=== PATIENT | female | born 1980 | race Caucasian/White ===

== ENCOUNTER → 2022-04-18 | Outpatient (CLI) | payer BC, SELFPAY ==
[2022-04-18 09:58] LABS: Absolute Lymphocyte Count 1.99 X10^3/uL (0.83-4.51); Absolute Neutrophil Count 2.8 X10^3/uL (2.0-7.7); Basophil# 0.02 X10^3/uL; Basophil% 0.4 % (0-1); Eosinophil# 0.04 X10^3/uL; Eosinophils% 0.8 % (0-5); Hematocrit 46.8 % (37-47); Hemoglobin 15.1 g/dL (12.0-15.0); Lymphocyte # 1.99 X10^3/ul (0.83-4.51); Lymphocyte % 37.9 % (19-41); Mean Corp Hgb Conc 32.3 g/dL (32-36); Mean Corpuscular Volume 92.9 fL (81-99); Mean Platelet Vol. 9.1 fl (6.2-12.0); Monocyte# 0.35 X10^3/uL; Monocyte% 6.7 % (0-10); NRBC Flagged by Analyzer 0 % (0-5); Neutrophil # 2.84 X10^3/uL (2.7-7.7); Platelet Count 249 K/mm3 (150-450); RBC Distribution Width CV 13.2 % (11.6-14.6); RBC Distribution Width SD 44.4 fl (35.1-43.9); Red Blood Count 5.04 M/mm3 (4.2-5.4); White Blood Count 5.3 K/mm3 (4.4-11.0)
[2022-04-18 10:25] LABS: ALB/GLOB Ratio 0.9 RATIO (0.9-2.4); AST(SGOT) 16 U/L (15-37); Alanine Aminotransfer ALT/SGPT 20 U/L (13-56); Albumin, Serum 3.6 g/dL (3.2-5.0); Alkaline Phosphatase 44 U/L (45-117); Anion Gap 5 (5-15); BUN 15 mg/dL (7-18); BUN/Creat Ratio 16.9 RATIO (10-20); Chloride 109 mmol/L (98-107); Cholesterol 191 mg/dL (200); Creatinine, Serum 0.89 mg/dL (0.55-1.02); EST Glomerular Filtration Rate 74 mL/min (>60); Est Glom Filt Rate - Afr Amer 89 mL/min (>60); Globulin 4.2 g/dL (2.2-4.2); Glucose 93 mg/dL (74-106); High Density Lipoprotein 59 mg/dL; Potassium 4.1 mmol/L (3.5-5.1); Protein, Total 7.8 g/dL (6.4-8.2); Sodium Level 141 mmol/L (136-145); T4 Free Direct 1.03 ng/dL (0.76-1.46); Thyroid Stim Hormone (TSH) 2.45 uIU/mL (0.358-3.74); Triglycerides 70 mg/dL; Very Low Density Lipoprotein 14 mg/dL (5-40)
== END | disposition home or self-care (01) ==
LOC: MTLAB 08:13
PROVIDERS: PCP Family Medicine; Referring Provider Family Medicine; Visit Provider Family Medicine
DX: Z13.0 Encounter for screening for diseases of the blood and blood-forming organs and certain disorders involving the immune mechanism (principal); E03.9 Hypothyroidism, unspecified; Z13.1 Encounter for screening for diabetes mellitus; Z13.220 Encounter for screening for lipoid disorders
CPT/HCPCS: 36415; 80053; 80061; 83036; 84439; 84443; 85025

== ENCOUNTER → 2023-09-14 | Outpatient (CLI) | payer BC, SELFPAY ==
[2023-09-14 10:18] LABS: Thyroid Stim Hormone (TSH) 3.18 uIU/mL (0.358-3.74)
== END | disposition home or self-care (01) ==
LOC: MTLAB 08:41
PROVIDERS: PCP Family Medicine; Referring Provider Family Medicine; Visit Provider Family Medicine
DX: E03.9 Hypothyroidism, unspecified (principal)
CPT/HCPCS: 36415; 84436; 84443

== ENCOUNTER → 2023-12-18 | Outpatient (CLI) | payer BC, SELFPAY ==
--- NOTE | 2023-12-18 14:13 | BI_ITS ---
MAMMOGRAPHY - BILATERAL SCREENING REASON FOR EXAM: Female, 43 years old. Routine annual screening examination. PERTINENT HISTORY: Mother with breast cancer. History of excisional breast biopsy of the left breast for resection of a fibroadenoma. TECHNIQUE: Digital bilateral breast hattie (3D mammographic acquisition) in the CC and MLO projections. 2-D mediolateral oblique (MLO) and craniocaudad (CC) views of both breasts were obtained. CAD: Full Field Digital Mammography with Computer Added Detection was performed. COMPARISON: Comparison is made with prior outside examination of October 04, 2020. FINDINGS: Breast Composition: The breasts are extremely dense, which lowers the sensitivity of mammography. There are no dominant masses or suspicious calcifications. Stable small bilateral axillary lymph nodes. No other significant abnormalities are identified. There has been no significant change since the prior study. BI/SCRN MAMM (CAD)W/HATTIE BILAT IMPRESSION: Stable bilateral screening mammogram. Yearly follow-up mammogram recommended. (A) ASSESSMENT CATEGORY: BIRADS Category 2: Benign. A letter regarding these results will be sent to the patient by the facility within 30 days. Approximately 10% of breast cancers are not detected by mammography. A normal mammogram should not delay biopsy of a clinically suspicious abnormality. [id number] Electronically Signed: Kam Rose MD at 8:39 EST ,
--- OUTSIDE RECORDS SUMMARY | 2023-12-18 14:59 | XMS RPT_ITS | CCD ---
Author Organization [facility] Care Team Providers Care Ambulance Dispatcher Name Role Phone Pcp, No Unavailable Unavailable Pcp, No Unavailable Unavailable Pcp, No Unavailable Unavailable Dawson VALENTINE, Urbano Estrada Primary Care Provider Pcp MANAGER HOME, No Unavailable Unavailable CHELSEY HUTCHINSON Attending Unavailable Medications Current Medications Medication Drug Class(es) Dates Sig (Normalized) Sig (Original) levothyroxine sodium 0.088 mg oral tablet (1 source) l-Thyroxine Start: 01-31-2020 take 1 tablet by mouth once daily for thyroid dysfunction levothyroxine (LEVOXYL) 88 mcg tablet Indications: Acquired hypothyroidism Take 1 tablet by mouth once daily. Take on empty stomach. For Thyroid 90 tablet 1 01/31/2020 Active Problems Problem Classification Problem Date Documented Date Episodic/Chronic Immunizations and screening for infectious disease (1 source) Encounter for screening for human papillomavirus (HPV); Translations: [Encounter for screening for human papillomavirus (HPV)] Onset: 11-11-2023 Episodic Other screening for suspected conditions (not mental disorders or infectious disease) (6 sources) Patient encounter status; Translations: [Encounter for screening mammogram for malignant neoplasm of breast] Onset: 11-11-2023 Episodic Thyroid disorders (2 sources) Acquired hypothyroidism; Translations: [Hypothyroidism, unspecified] Onset: 11-24-2016 11-24-2016 Chronic Results Test Name Value Interpretation Reference Range Facility CNOVon 11-11-2023 CNOV Office Visit (OBGYWM ) THOMAS PRICE ([id number]) 1980 F Date Time Provider Department 11/11/23 9:40 AM CHELSEY HUTCHINSON OBGYWM During your visit today, we recorded the following information about you: Blood pressure Weight Height Last Period 116/62 64.9 kg 1.6 m 10/29/23 Chelsey Hutchinson MD 11/11/2023 10:15 AM Signed Thomas is a 43 year old who presents for an annual gynecologic exam without complaints. Menses: cycles every 28-30 days and 4 days of flow. 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 History Comments: Sexual Activity: Yes; Male Contraception: No contraception data on record PAST MEDICAL HISTORY Diagnosis Date Breast tumor 02/23/1998 benign Hypothyroid Miscarriage Unicornate uterus PAST SURGICAL HISTORY Procedure Laterality Date OTHER 1998 jay, breast tumor FAMILY HISTORY Problem Relation Age of Onset Thyroid Mother Breast Cancer Mother 66 other (Other) Father spleen removed d/t thrombocytopenia None Brother SOCIAL HISTORY Social History Tobacco Use Smoking status: Never Smokeless tobacco: Never Vaping Use Vaping status: Never Used Substance Use Topics Alcohol use: Yes Alcohol/week: 2.0 standard drinks of alcohol Types: 2 Glasses of Wine (5oz) per week Comment: glass of wine weekends, cocktail monthly Drug use: No REVIEW OF SYSTEMS Abdomen: No abdominal pain, nausea, vomiting, diarrhea, or constipation. No bloating, early satiety, indigestion, or increased flatulence. Bladder: No dysuria, gross hematuria, urinary frequency, urinary urgency, or incontinence. Breast: No breast lumps, nipple d/c, overlying skin changes, redness or skin retraction. Allergies and current medication updated:Yes SENSITIVE EXAM: The sensitive examination was discussed with the Patient or Patient's Authorized Prefabricator. As applicable, any other physician, advance practice provider, medical student, or other health professional student that will be observing or involved in the sensitive examination for educational or training purposes was discussed with the Patient or Authorized Prefabricator. The Patient or Authorized Prefabricator has agreed to proceed with the sensitive examination. (Sensitive examination includes inspection and/or palpation of the breasts, pelvis, prostate and anorectal regions). EXAM: BP 116/62 Ht 5' 3 (1.60m) Wt 143 lb (64.9kg) LMP 10/29/2023 BMI 25.34 kg/(m2). GENERAL: pleasant, female in no apparent distress HEENT: Normocephalic, atraumatic, mucus membranes moist, and no lesions NECK: Supple, full range of motion, no adenopathy, and thyroid normal DERMATOLOGY: Normal, without lesions, non-icteric, and non-hirsute BREAST: soft, non-tender, symmetric, no dominant mass, normal nipple-areolar complex, no lymphadenopathy, and no nipple discharge CHEST: Normal inspiratory effort ABDOMEN: soft, non-tender, and no masses PELVIC: external genitalia normal, normal Bartholin's glands, urethra, [place]'s glands, no vulvar lesions, no cervical lesions, good vaginal support, physiologic discharge present, normal appearing perineal body and perianal region BIMANUAL: uterus normal size, shape and consistency, no adnexal masses, and non-tender RECTOVAGINAL: deferred. NEURO: alert and oriented x3,exam grossly non-focal EXTREMITIES: normal ASSESSMENT/PLAN: 1) Health maintenance: Pap/HPV up to date. Mammogram up to date . HPV vaccine: discussed, not interested 2) Contraception: none. Contraceptive options reviewed and information provided. 3) STD screening: Declined STD check. 4) Follow up one year or sooner as needed Chelsey Hutchinson MD Allergies As of Date: 11/11/2023 (No Known Allergies) Date Reviewed: 11/11/2023 Reviewed by: Chelsey Hutchinson MD - Fully Assessed Reason for Visit: Yearly Exam [187] Primary Visit Diagnosis:Encounter for gynecological examination (general) (routine) without abnormal findings [Z01.419] Other Visit Diagnoses:Screening for cervical cancer [Z12.4] Encounter for screening for human papillomavirus (HPV) [Z11.51] Encounter for screening mammogram for breast cancer [Z12.31] Order(s):PAP TEST [[id number]] Order #: [id number] JOSELIN SCREENING W HATTIE [[id number]] Order #: [id number] FUTURE JOSELIN SCREENING W HATTIE [[id number]] Order #: [id number] FUTURE Prescriptions as of 11/11/2023 - levothyroxine (LEVOXYL) 88 mcg tablet Take 1 tablet by mouth once daily. Take on empty stomach. For Thyroid Problem List As Of (more content not included)... Normal [facility] HIGH RISK HUMAN PAPILLOMA COLLEEN (HPV), PCR FOR DETECTION AND GENOTYPINGon 11-11-2023 HPV 16 Ag Ql (Unsp spec) Not detected Normal Not detected [facility] Comment on above: Order Comment: Speci men Type: FLUID SPECIMEN Ordering Facility: [facility] Address: [address] [place] [address] Performed By: #### L [id number], HPVHRT #### [facility] CLIA [id number] [address] [place] [address] [place] HPV 18 Ag Ql (Unsp spec) Not detected Normal Not detected [facility] Comment on above: Order Comment: Speci men Type: FLUID SPECIMEN Ordering Facility: [facility] Address: [address] [place] [address] Performed By: #### L [id number], HPVHRT #### [facility] CLIA [id number] [address] [place] [address] [place] HPV 31+33+35+39+45+51+52 +56+58+59+66+68 DNA PAT+probe Ql (Cvx) Not detected Normal Not detected [facility] Comment on above: Order Comment: Speci men Type: FLUID SPECIMEN Ordering Facility: [facility] Address: [address] [place] [address] Result Comment: High Risk HPV Other Type includes HPV types 31, 33, 35, 39, 45, 51, 52, 56, 58, 59, 66 and 68. Performed By: #### L [id number], HPVHRT #### [facility] CLIA [id number] [address] [place] [address] [place] PAP TESTon 11-11-2023 ADEQUACY Satisfactory for interpretation. Normal [facility] Comment on above: Order Comment: Speci men Type: FLUID SPECIMEN Ordering Facility: [facility] Address: [address] [place] [address] Performed By: #### L [id number], HPVHRT #### [facility] CLIA [id number] [address] [place] [address] [place] CASE REPORT Normal [facility] Comment on above: Order Comment: Speci men Type: FLUID SPECIMEN Ordering Facility: [facility] Address: [address] [place] [address] Result Comment: Gyne cologic Cytology Report Case: [id number] Authorizing Provider: Chelsey Hutchinson MD Collected: 11/11/2023 10:22 AM Ordering Location: OB/Gynecology Received: 11/11/2023 11:46 AM First Screen: Alice Sweet Tech Pathologist: Cherry Miller MD Specimen: Pap Test, ThinPrep, Cervix Performed By: #### L [id number], HPVHRT #### [facility] CLIA [id number] [address] [place] [address] [place] CLINICAL HISTORY, CYTOLOGY, INTERNATIONAL ACCOUNT MANAGER Routine Exam Normal [facility] Comment on above: Order Comment: Speci men Type: FLUID SPECIMEN Ordering Facility: [facility] Address: [address] [place] [address] Performed By: #### L [id number], HPVHRT #### [facility] CLIA [id number] [address] [place] [address] [place] CYTOLOGY PAP OTHER INT Predominance of coccobacilli consistent with shift in vaginal arash Normal [facility] Comment on above: Order Comment: Speci men Type: FLUID SPECIMEN Ordering Facility: [facility] Address: [address] [place] [address] Performed By: #### L [id number], HPVHRT #### [facility] CLIA [id number] [address] [place] [address] [place] FINAL PERFORMING LAB Normal [facility] Comment on above: Order Comment: Speci men Type: FLUID SPECIMEN Ordering Facility: [facility] Address: [address] [place] [address] Result Comment: Tech nical component, addictions counselor assistant screening performed at [facility], [address] [place] [address] CLIA# [id number] Diagnostic interpretation performed at [facility], [facility] [place] [id number] CLIA# [id number] Nurse Licensed Practical: German Alejandro M.D. Performed By: #### L [id number], HPVHRT #### [facility] CLIA [id number] [address] [place] [address] [place] HPV REFLEX Yes HPV Normal [facility] Comment on above: Order Comment: Speci men Type: FLUID SPECIMEN Ordering Facility: [facility] Address: [address] [place] [address] Performed By: #### L [id number], HPVHRT #### [facility] CLIA [id number] [address] [place] [address] [place] INTERPRETATION, CYTOLOGY, INTERNATIONAL ACCOUNT MANAGER Abnormal [facility] Comment on above: Order Comment: Speci men Type: FLUID SPECIMEN Ordering Facility: [facility] Address: [address] [place] [address] Result Comment: Atyp ical squamous cells of undetermined significance (ASC-US). Performed By: #### L [id number], HPVHRT #### [facility] CLIA [id number] [address] [place] [address] [place] LMP 10/29/2023 Normal [facility] Comment on above: Order Comment: Speci men Type: FLUID SPECIMEN Ordering Facility: [facility] Address: [address] [place] [address] Performed By: #### L [id number], HPVHRT #### [facility] CLIA [id number] [address] [place] [address] [place] PAP DISCLAIMER COMMENT The Pap Smear is a screening test for cervical cancer. False negative results occur with all screening tests, emphasizing the need for rescreening at recommended intervals, and clinical correlation. Normal [facility] Comment on above: Order Comment: Speci men Type: FLUID SPECIMEN Ordering Facility: [facility] Address: [address] [place] [address] Performed By: #### L [id number], HPVHRT #### [facility] CLIA [id number] [address] [place] [address] [place] PAP GENERAL CATEGORIZATION Epithelial Cell Abnormality Normal [facility] Comment on above: Order Comment: Speci men Type: FLUID SPECIMEN Ordering Facility: [facility] Address: [address] [place] [address] Performed By: #### L [id number], HPVHRT #### [facility] CLIA [id number] [address] [place] [address] [place] PAP WIRE HARNESS ASSEMBLER COMMENT This specimen has be en analyzed by the ThinPrep Imaging System, an automated imaging and review system, which assists the laboratory in evaluating cells on ThinPrep Pap tests. Following automated imaging, selected vargas from every slide are reviewed by a addictions counselor assistant. Normal [facility] Comment on above: Order Comment: Speci men Type: FLUID SPECIMEN Ordering Facility: [facility] Address: [address] [place] [address] Performed By: #### L [id number], HPVHRT #### [facility] CLIA [id number] [address] [place] [address] [place] CNNURSEon 06-18-2020 CNNURSE Nurse Visit (NASIMA) THOMAS PRICE ([id number]) 1980 F Date Time Provider Department 06/18/20 10:25 AM COVID VACCINE BHAKTA COVAMD During your visit today, we recorded the following information about you: Referring Provider: EDEN SWEENEY JR [[id number]] Allergies As of Date: 06/18/2020 (No Known Allergies) Date Reviewed: 04/08/2019 Reviewed by: Estephania Bone Ma - Fully Assessed Order(s):[employer] English SARS-COV-2 VACCINE 2D DOSE APPT [[id number]] Order #: [id number] [employer] COVID-19 VACCINE [[id number]] Order #: [id number] Prescriptions as of 06/18/2020 Sig: LEVOTHYROXINE 88 MCG TABLET Take 1 tablet by mouth once d* Problem List As Of Date 06/18/2020 Noted Resolved Acquired hypothyroidism [E03.9] 11/24/2016 Encounter Status:Closed by CLOSURE EPIC, ADMINISTRATIVE on 06/19/20 [facility] Vital Signs Date Time Vital Sign Value Performing Clinician Faci lity 11-11-2023 09:45-0400 Body height 160 cm Chelsey Hutchinson MD Work Phone: [facility] 11-11-2023 09:45-0400 Body mass index (BMI) [Ratio] 25.33 kg/m2 Chelsey Hutchinson MD Work Phone: [facility] 11-11-2023 09:45-0400 Body weight 64.86 kg Chelsey Hutchinson MD Work Phone: [facility] 11-11-2023 09:45-0400 Diastolic blood pressure 62 mm[Hg] Chelsey Hutchinson MD Work Phone: [facility] 11-11-2023 09:45-0400 Systolic blood pressure 116 mm[Hg] Chelsey Hutchinson MD Work Phone: [facility] Encounters Encounter Date Encounter Type Care Provider Facility Start: 11-11-2023 End: 11-11-2023 Patient encounter procedure Chelsey Hutchinson MD Work Phone: OB/Gynecology Comment on above: Encounter for gyneco logical examination (general) (routine) without abnormal findings (Primary Dx); Screening for cervical cancer; Encounter for screening for human papillomavirus (HPV); Encounter for screening mammogram for breast cancer Start: 11-11-2023 End: 11-11-2023 Patient encounter status Chesley Hutchinson MD Work Phone: [facility] Start: 11-11-2023 End: 11-11-2023 ambulatory CHELSEY HUTCHINSON Facility:[facility] Start: 11-11-2023 Encounter for gynecological examination (general) (routine) without abnormal findings CHELSEY HUTCHINSON [facility] Start: 11-20-2021 ambulatory Urbano duncan MD Work Phone: Internal Medicine Main [place] Procedures Date Procedure Procedure Detail Performing Clinician Start: 10-04-2020 Mammography Urbano denny MD Work Phone: Plan of Treatment Date Care Activity Detail Author Start: 11-10-2024 End: 12-10-2024 DBT Breast - bilateral screening JOSELIN SCREENING W HATTIE Radiology Routine Encounter for gynecological examination (general) (routine) without abnormal findings Encounter for screening mammogram for breast cancer Expected: 11/10/2024, Expires: 12/10/2024 [facility] Comment on above: Expected: 11/10/2024 , Expires: 12/10/2024 Start: 10-25-2023 Covid-19 Vaccine ( season) Covid-19 Vaccine () [facility] Start: 10-25-2023 Influenza vaccination Influenza Vacc ine (#1) [facility] Start: 10-24-2021 Influenza vaccination INFLUENZA (#1) [facility] Start: 10-04-2021 Mammography MAMMOGRAM [facility] Start: 10-04-2021 Screening for malign ant neoplasm of breast Mammogram Screening [facility] Start: 02-23-2021 DEPRESSION ASSESSMENT DEPRESSION ASS ESSMENT [facility] Start: 01-30-2021 ANNUAL PCP TEAM SEE WHEELER MOSES DISEASE VISIT ANNUAL PCP TEAM CHRONIC DISEASE VISIT [facility] Start: 10-24-2020 HPV TESTING HPV TESTING [facility] Start: 10-24-2020 PAP TESTING PAP TESTING [facility] Start: 10-24-2020 Screening for malign ant neoplasm of cervix Cervical Cancer Screening [facility] Start: 08-13-2020 COVID-19 VACCINE (3 - Booster for Pfizer series) COVID-19 VACCINE (3 - Booster for Pfizer series) [facility] Start: 09-29-1998 Hepatitis B Vaccine (1 of 3 - 19+ 3-dose series) Hepatitis B Vaccine (1 of 3 - 19+ 3-dose series) [facility] Start: 09-29-1998 Urine microalbumin profile [facility] Start: 09-29-1997 Anxiety Screening Anxiety Screening [facility] Start: 09-29-1997 Depression Screening Depression Scre ening [facility] Start: 09-29-1997 HEPATITIS C SCREENING HEPATITIS C [facility] Start: 09-29-1997 Hepatitis C screening Hepatitis C [facility] Start: 09-29-1997 HIV SCREENING HIV SCREENING [facility] Start: 09-29-1997 HIV screening HIV Screening [facility] Start: 1980 HEPATITIS B (1 of 3 - 3-dose series) HEPATITIS B (1 of 3 - 3-dose series) [facility] End: 12-10-2024 DBT Breast - bilateral screening JOSELIN SCREENING W HATTIE Radiology Routine Encounter for gynecological examination (general) (routine) without abnormal findings Encounter for screening mammogram for breast cancer 1 Occurrences starting 11/11/2023 until 12/10/2024 [facility] Work Phone: Comment on above: 1 Occurrences starti ng 11/11/2023 until 12/10/2024 PAP TEST PAP TEST Lab Ezequiel allen Encounter for gynecological examination (general) (routine) without abnormal findings Screening for cervical cancer Encounter for screening for human papillomavirus (HPV) 11/11/2023 10:22 AM EDT [facility] End: 12-20-2022 Screening mammography bi 2-view breast inc cad JOSELIN SCREENING Radiology Routine Encounter for screening mammogram for breast cancer 1 Occurrences starting 11/20/2021 until 12/20/2022 [facility] Work Phone: Comment on above: 1 Occurrences starti ng 11/20/2021 until 12/20/2022 Immunizations Immunization Date Immunization Notes Care Provider Glenda banda 06-18-2020 COVID-19 original vaccine, age 12+ yr, monovalent (PFIZER-BIONTECH - PURPLE TOP) Urbano Osman MD Work Phone: [facility] 05-28-2020 COVID-19 original vaccine, age 12+ yr, monovalent (PFIZER-BIONTECH - PURPLE TOP) Urbano Osman MD Work Phone: [facility] 11-24-2016 influenza virus vacc ine, unspecified formulation Chelsey Hutchinson MD Work Phone: [facility] Payers Date Payer Category Payer Unknown [employer] PPO [id number] 2021-Present [phone] [address] [place] [address] PPO [id number] 2021 Unknown [id number] 2020 Private Health Insurance [employer]IG[employer]EDEN Aggarwal IGNA POS [id number] 2020-Present [phone] [address] [place] [address] POS [id number] Social History Date Type Detail Facility Start: 01-03-2016 End: 11-11-2023 Tobacco smoking status NHIS Never smoked tobacco [facility] Start: 01-03-2016 End: 11-11-2023 Tobacco use and exposure Smokeless tobacco non-user [facility] Start: 04-08-2019 End: 11-11-2023 Alcohol intake Current drinker of alcohol (finding) [facility] Start: 04-08-2019 End: 11-11-2023 Alcohol intake [facility] Start: 11-24-2016 History SDOH Alcohol Comment glass of wine weekends, cocktail monthly [facility] Start: 1980 Sex Assigned At Not on file C [facility] Start: 11-11-2023 Tobacco use panel [facility] National Score (1-10 0), lower number is lower risk 64 [facility] Progress note 11-11-2023 Note Date & Type Note Facility 11-11-2023 Note HNO ID: [id number] Author: CHELSEY HUTCHINSON MD Service: ? Author Type: Physician Type: Progress Notes Filed: 11/11/2023 10:15 Note Text: Thomas is a 43 year old who presents for an annual gynecologic exam without complaints. Menses: cycles every 28-30 days and 4 days of flow. 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 History Comments: Sexual Activity: Yes; Male Contraception: No contraception data on record PAST MEDICAL HISTORY Diagnosis Date Breast tumor 02/23/1998 benign Hypothyroid Miscarriage Unicornate uterus PAST SURGICAL HISTORY Procedure Laterality Date OTHER 1998 jay, breast tumor FAMILY HISTORY Problem Relation Age of Onset Thyroid Mother Breast Cancer Mother 66 other (Other) Father spleen removed d/t thrombocytopenia None Brother SOCIAL HISTORY Social History Tobacco Use Smoking status: Never Smokeless tobacco: Never Vaping Use Vaping status: Never Used Substance Use Topics Alcohol use: Yes Alcohol/week: 2.0 standard drinks of alcohol Types: 2 Glasses of Wine (5oz) per week Comment: glass of wine weekends, cocktail monthly Drug use: No REVIEW OF SYSTEMS Abdomen: No abdominal pain, nausea, vomiting, diarrhea, or constipation. No bloating, early satiety, indigestion, or increased flatulence. Bladder: No dysuria, gross hematuria, urinary frequency, urinary urgency, or incontinence. Breast: No breast lumps, nipple d/c, overlying skin changes, redness or skin retraction. Allergies and current medication updated:Yes SENSITIVE EXAM: The sensitive examination was discussed with the Patient or Patient's Authorized Prefabricator. As applicable, any other physician, advance practice provider, medical student, or other health professional student that will be observing or involved in the sensitive examination for educational or training purposes was discussed with the Patient or Authorized Prefabricator. The Patient or Authorized Prefabricator has agreed to proceed with the sensitive examination. (Sensitive examination includes inspection and/or palpation of the breasts, pelvis, prostate and anorectal regions). EXAM: BP 116/62 Ht 5' 3 (1.60m) Wt 143 lb (64.9kg) LMP 10/29/2023 BMI 25.34 kg/(m2). GENERAL: pleasant, female in no apparent distress HEENT: Normocephalic, atraumatic, mucus membranes moist, and no lesions NECK: Supple, full range of motion, no adenopathy, and thyroid normal DERMATOLOGY: Normal, without lesions, non-icteric, and non-hirsute BREAST: soft, non-tender, symmetric, no dominant mass, normal nipple-areolar complex, no lymphadenopathy, and no nipple discharge CHEST: Normal inspiratory effort ABDOMEN: soft, non-tender, and no masses PELVIC: external genitalia normal, normal Bartholin's glands, urethra, [place]'s glands, no vulvar lesions, no cervical lesions, good vaginal support, physiologic discharge present, normal appearing perineal body and perianal region BIMANUAL: uterus normal size, shape and consistency, no adnexal masses, and non-tender RECTOVAGINAL: deferred. NEURO: alert and oriented x3,exam grossly non-focal EXTREMITIES: normal ASSESSMENT/PLAN: 1) Health maintenance: Pap/HPV up to date. Mammogram up to date . HPV vaccine: discussed, not interested 2) Contraception: none. Contraceptive options reviewed and information provided. 3) STD screening: Declined STD check. 4) Follow up one year or sooner as needed Chelsey Hutchinson MD [facility] History of Present illness Narrative 11-11-2023 Chelsey Hutchinson MD - 11/11/2023 9:41 AM EDT Note Date & Type Note Facility 11-11-2023 History of Presen t illness Narrative Thomas is a 43 year old who presents for an annual gynecologic exam without complaints. Menses: cycles every 28-30 days and 4 days of flow. 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 History Comments: Sexual Activity: Yes; Male Contraception: No contraception data on record PAST MEDICAL HISTORY Diagnosis Date Breast tumor 02/23/1998 benign Hypothyroid Miscarriage Unicornate uterus PAST SURGICAL HISTORY Procedure Laterality Date OTHER 1998 jay, breast tumor FAMILY HISTORY Problem Relation Age of Onset Thyroid Mother Breast Cancer Mother 66 other (Other) Father spleen removed d/t thrombocytopenia None Brother SOCIAL HISTORY Social History Tobacco Use Smoking status: Never Smokeless tobacco: Never Vaping Use Vaping status: Never Used Substance Use Topics Alcohol use: Yes Alcohol/week: 2.0 standard drinks of alcohol Types: 2 Glasses of Wine (5oz) per week Comment: glass of wine weekends, cocktail monthly Drug use: No REVIEW OF SYSTEMS Abdomen: No abdominal pain, nausea, vomiting, diarrhea, or constipation. No bloating, early satiety, indigestion, or increased flatulence. Bladder: No dysuria, gross hematuria, urinary frequency, urinary urgency, or incontinence. Breast: No breast lumps, nipple d/c, overlying skin changes, redness or skin retraction. Allergies and current medication updated:Yes SENSITIVE EXAM: The sensitive examination was discussed with the Patient or Patient's Authorized Prefabricator. As applicable, any other physician, advance practice provider, medical student, or other health professional student that will be observing or involved in the sensitive examination for educational or training purposes was discussed with the Patient or Authorized Prefabricator. The Patient or Authorized Prefabricator has agreed to proceed with the sensitive examination. (Sensitive examination includes inspection and/or palpation of the breasts, pelvis, prostate and anorectal regions). EXAM: BP 116/62 Ht 5' 3 (1.60m) Wt 143 lb (64.9kg) LMP 10/29/2023 BMI 25.34 kg/(m^2). GENERAL: pleasant, female in no apparent distress HEENT: Normocephalic, atraumatic, mucus membranes moist, and no lesions NECK: Supple, full range of motion, no adenopathy, and thyroid normal DERMATOLOGY: Normal, without lesions, non-icteric, and non-hirsute BREAST: soft, non-tender, symmetric, no dominant mass, normal nipple-areolar complex, no lymphadenopathy, and no nipple discharge CHEST: Normal inspiratory effort ABDOMEN: soft, non-tender, and no masses PELVIC: external genitalia normal, normal Bartholin's glands, urethra, [place]'s glands, no vulvar lesions, no cervical lesions, good vaginal support, physiologic discharge present, normal appearing perineal body and perianal region BIMANUAL: uterus normal size, shape and consistency, no adnexal masses, and non-tender RECTOVAGINAL: deferred. NEURO: alert and oriented x3,exam grossly non-focal EXTREMITIES: normal ASSESSMENT/PLAN: 1) Health maintenance: Pap/HPV up to date. Mammogram up to date . HPV vaccine: discussed, not interested 2) Contraception: none. Contraceptive options reviewed and information provided. 3) STD screening: Declined STD check. 4) Follow up one year or sooner as needed Chelsye Hutchinson MD documented in this encounter [facility] Evaluation note Note Date & Type Note Facility Evaluation note Diagnosis Encounter for screening mammogram for breast cancer documented in this encounter [facility] Evaluation note Note Date & Type Note Facility Evaluation note Diagnosis Encounter for gynecological examination (general) (routine) without abnormal findings- Primary Screening for cervical cancer Screening for malignant neoplasm of the cervix Encounter for screening for human papillomavirus (HPV) Special screening examination for human papillomavirus (HPV) Encounter for screening mammogram for breast cancer documented in this encounter [facility] Reason for referral (narrative) Diagnostic Procedure Only (Routine) - Pending Review Note Date & Type Note Facility Reason for referral (narrati ve) Specialty Diagnoses / Procedures Referred By Tobi cook Referred To Contact [facility] Diagnoses Encounter for screening mammogram for breast cancer Procedures JOSELIN SCREENING SCREENING MAMMOGRAPHY BI 2-VIEW BREAST INC CAD Urbano Osman MD [address] [place] [address] [facility] [address] [place] [id number] Referral ID Status Reason Start Date Expiration Date Visits Requested Visits Authorized [id number] Pending Review Auto-Generat ed Referral 11/20/2021 12/20/2022 1 1 [facility] Reason for referral (narrative) Diagnostic Procedure Only (Routine) - New Request Note Date & Type Note Facility Reason for referral (narrati ve) Specialty Diagnoses / Procedures Referred By Tobi cook Referred To Contact [facility] Diagnoses Encounter for gynecological examination (general) (routine) without abnormal findings Encounter for screening mammogram for breast cancer Procedures JOSELIN SCREENING W HATTIE SCREENING DIGITAL BREAST TOMOSYNTHESIS BI SCREENING MAMMOGRAPHY BI 2-VIEW BREAST INC Chelsey Dueñas MD [address] [place] [address] [facility] [address] [place] [address] Referral ID Status Reason Start Date Expiration Date Visits Requested Visits Authorized [id number] New Request Auto-Generat ed Referral 11/10/2024 12/10/2024 1 1 * Diagnostic Procedure Only (Routine) - New Request Specialty Diagnoses / Procedures Referred By Tobi cook Referred To Contact [facility] Diagnoses Encounter for gynecological examination (general) (routine) without abnormal findings Encounter for screening mammogram for breast cancer Procedures JOSELIN SCREENING W HATTIE SCREENING DIGITAL BREAST TOMOSYNTHESIS BI SCREENING MAMMOGRAPHY BI 2-VIEW BREAST INC Chelsey Dueñas MD [address] [place] [address] [facility] [address] [place] [address] Referral ID Status Reason Start Date Expiration Date Visits Requested Visits Authorized [id number] New Request Auto-Generat ed Referral 11/11/2023 12/10/2024 1 1 [facility] Summary Purpose Family History No Family History Records FoundNo Family History Records Found Advance Directives No Advanced Directives Records FoundNo Advanced Directives Records Found Additional Source Comments INFORMATION SOURCE (unrecogn ized section and content) DATE CREATED AUTHOR 06/24/2020 [facility] DATE CREATED AUTHOR AUTHOR'S ORGANIZ ATION 11/20/2023 [facility] Source Comments (unrecognize d section and content) In the event this informatio n is protected by the Federal Confidentiality of Alcohol and Drug Abuse Patient Records regulations: The Federal rules restrict any use of the information to criminally investigate or prosecute any alcohol or drug abuse patient.[facility] the event this information is protected by the Federal Confidentiality of Alcohol and Drug Abuse Patient Records regulations: The Federal rules restrict any use of the information to criminally investigate or prosecute any alcohol or drug abuse patient.[facility] Care Teams (unrecognized sec tion and content) Ambulance Dispatcher Relationship Specialty Start Date End Date Urbano Osman MD [address] [place] [address] [place] [address] PCP - General Family Medicine 01/27/20 Pcp, Deborah Family Medicine 02/27/15 Ambulance Dispatcher Relationship Specialty Start Date End Date Pcp, CLARA Cabrera Family Medicine 02/27/15 Reason for Visit (unrecogniz ed section and content) Reason Comments Yearly Exam FOR RECORDS PERTAINING TO PATIENTS WHO ARE OR HAVE BEEN ENROLLED IN A CHEMICAL DEPENDENCY/SUBSTANCEABUSE PROGRAM, SOME INFORMATION MAY BE OMITTED. This clinical summary was aggregated from multiple sources. Caution should be exercised in using it in the provision of clinical care. This summary normalizes information from multiple sources, and as a consequence, information in this document may materially change the coding, format and clinical context of patient data. In addition, data may be omitted in some cases. CLINICAL DECISIONS SHOULD BE BASED ON THE PRIMARY CLINICAL RECORDS. [employer] [facility]. provides no warranty or guarantee of the accuracy or completeness of information in this document.
== END | disposition home or self-care (01) ==
LOC: OPBI 14:11
PROVIDERS: PCP Family Medicine; Referring Provider Family Medicine; Visit Provider Family Medicine
DX: Z12.31 Encounter for screening mammogram for malignant neoplasm of breast (principal); Z80.3 Family history of malignant neoplasm of breast
CPT/HCPCS: 77063; 77067

== ENCOUNTER 2024-01-04 15:00 | Outpatient (RCR) | payer BC, SELFPAY ==
--- NOTE | 2023-12-16 10:08 | HP.PTEVAL_ITS ---
Patient's Visit Information Visit Information Visit Information: ANH PRICE is a 43 year old F referred to Physical Therapy by Yasmine Watkins MD with a diagnosis of LBP. Date of Evaluation: 12/16/23 Physical Therapist: Jf Pryor, PT, ATC Visit Plan Frequency: 2-3x /Week Duration: 4-6 Weeks Plan: Postural edu, REIL, core stab ex's, bike, and HEP Subjective Subjective: Pt reports she has had LBP for approximately 3 years. Pt notes she always has a certain amount of pain, but that the intensity varies. 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 No recent diagnostic tests. Pt denies any tingling or numbness in her LE's, but does feel a pain that radiates from her LB to the R hip region. Pt reports she performs squats and lunges with weights to strengthening her LE's which results in a lot of LBP. Pt reports she performs a stretching routine for her LE's that she was given to by her doctor that consists of piriformis and IT band stretches. No sleep difficulty at this time. 3/10 pain while sitting here at rest, 10/10 pain at worst. Pain LBP: Pain Intensity (Out of 10): 3 Pain Intensity Range: 10 Objective Objective: Neuro: B LE sensation is WNL to light touch. B patellar reflex= 2/3 MMT: R hip flex, knee flex and ext 4/5. All other B LE MMT 5/5 throughout ROM: Pt is moderately limited with extension and L SB. Repeated movements: RFIS 10x2 increased pain. REIL 10x2 decreased pain Balance/Special Test Scores Lower Extremity Functional Score: 72 Goals Goal 1:: Decrease LBP x 50% to aid with sleep Goal Time Frame: 4-6 Weeks Goal 2:: Increase L/S ext ROM x 1 grade to aid with IADL's Goal Time Frame: 4-6 Weeks Goal 3:: I with HEP Goal Time Frame: 4-6 Weeks Rehabilitation Potential Physical Therapy Diagnosis: Pt has R LBP, R LE radiculopathy, and difficulty with exercising secondary to L/S disc derangement Rehabilitation Potential: Good Anticipated Interventions Patient/Client Instruction: Educate patient on: Condition and Plan of Care For the Purpose of:: To improve self management Therapeutic Exercise to Include: Strength training, Body mechanics, Postural training, Dynamic Lumbar Stabilization and Milvia Exercises For the Purpose of:: To decrease pain, To increase ROM and To improve muscle performance and motor function Text: Thank you for the opportunity to evaluate your patient. For Medicare and Medicare HMO plans, please review the plan of care and approve it. It will need to be FAXED BACK to us at [phone] for Medicare purposes. For Medicare only, by signing this I certify the plan of care. Please let me know if there are questions or concerns regarding this plan of care. Physician Signature: Date:
--- NOTE | 2024-01-04 15:33 | HP.PTDCSUM ---
Discharge Summary D/C summary: It has been my pleasure to treat ANH PRICE referred by Yasmine Watkins MD, with the diagnosis of LBP for a total of 5 visit(s). Discharge Date: Please see the following information for a summary of their discharge status. Subjective Subjective: I am about the same. No significant changes at this time. Pain LBP: Pain Intensity (Out of 10): 3 Overall Improvement % Improvement: 5 Objective Objective/Function: L/S ROM is now WNL in all planes Pt is I with HEP LBP is relatively unchanged at this time Goals Goal 1:: Decrease LBP x 50% to aid with sleep Goal Progress: Not Progressing Goal 2:: Increase L/S ext ROM x 1 grade to aid with IADL's Goal 3:: I with HEP Goal Progress: Goal Met Plan Plan: Discontinue to HEP D/C Information d/c sentence: If there are questions or concerns regarding this patient's physical therapy, please feel free to call me at [phone]. Thank you for the referral of this patient. Sincerely, Jf Pryor, PT, ATC Balance/Gait/Functional tests Balance/Special Test Scores Lower Extremity Functional Score: 72 Improvement % Improvement: 5
== END 2024-01-04 19:00 | disposition home or self-care (01) ==
LOC: PT 15:00
PROVIDERS: PCP Family Medicine; Referring Provider Family Medicine; Visit Provider Family Medicine
DX: M70.71 Other bursitis of hip, right hip (principal)
CPT/HCPCS: 97110; 97161; 97530

== ENCOUNTER → 2024-06-07 | Outpatient (CLI) | payer BC, SELFPAY ==
[2024-06-07 11:00] LABS: Follicle Stimulating Hormone 5.3 mIU/mL
[2024-06-08 04:07] LABS: PROGESTERONE 6.5 ng/mL (.)
[2024-06-09 14:29] LABS: Luteinizing Hormone 4.1 mIU/mL
[2024-06-10 15:08] LABS: Estrogen, Total, Serum 203 pg/mL (.)
== END | disposition home or self-care (01) ==
LOC: MTLAB 08:22
PROVIDERS: PCP Family Medicine; Referring Provider Family Medicine; Visit Provider Family Medicine
DX: E03.9 Hypothyroidism, unspecified (principal); Z95.1 Presence of aortocoronary bypass graft
CPT/HCPCS: 36415; 82672; 83001; 83002; 84144; 84443

== ENCOUNTER → 2024-12-09 | Outpatient (CLI) | payer BC, SELFPAY | END | disposition home or self-care (01) | LOC: MTLAB 08:59 | PROVIDERS: PCP Family Medicine | DX: E03.9 Hypothyroidism, unspecified (principal) | CPT/HCPCS: 84439; 84443 ==